=== PATIENT | male | born 1995 | race Two or more races ===

== ENCOUNTER 2020-06-03 22:43 | Emergency (ER) | payer MEDICAID, OTHER ==
[~2020-06-03] VITALS: Ht 162.6 cm; Wt 81.6 kg
[2020-06-03 23:08] VITALS: BP 113/63
== END 2020-06-04 04:29 | disposition left against medical advice (07) ==
LOC: ER 22:45
DX: M25.531 Pain in right wrist (principal); M25.571 Pain in right ankle and joints of right foot; Z53.21 Procedure and treatment not carried out due to patient leaving prior to being seen by health care provider
CPT/HCPCS: 71250; 73100; 73610; 74176; 93005